=== PATIENT | male | born 1990 | race Caucasian/White ===

== ENCOUNTER 2020-11-13 22:11 | Emergency (ER) | payer BC, MEDICAID ==
[~2020-11-13] VITALS: Ht 172.7 cm; Wt 113.4 kg
[2020-11-13 22:11] VITALS: BP 109/61
[2020-11-13] MEDS ORDERED: CLIN150C16 PO (23:16)
[2020-11-13] MEDS ORDERED: SULF1TAB48 PO (23:16)
--- NOTE | 2020-11-14 00:04 | NUR ---
Patient discharged to home in stable condition. Written and verbal after care instructions given. Patient verbalizes understanding of instruction.
== END 2020-11-14 00:05 | disposition home or self-care (01) ==
LOC: ER 22:17
DX: L73.9 Follicular disorder, unspecified (principal)

== ENCOUNTER 2020-12-21 18:54 | Emergency (ER) | payer MEDICAID ==
[~2020-12-21] VITALS: Ht 167.6 cm; Wt 104.3 kg
[~2020-12-21 18:54] MED LIST: CLIN150C16 PO; SULF1TAB48 PO
[2020-12-21 19:01] VITALS: BP 139/81
[2020-12-21] MEDS ORDERED: LIDOCAINE 1%-EPI 1:100,000 20 ML VIAL ONE (19:08)
[2020-12-21] MEDS ORDERED: LIDOCAINE 1%-EPI 1:100,000 20 ML VIAL TP ONE (19:30)
[2020-12-21] MEDS ORDERED: DOXY100C41 PO (19:36)
--- NOTE | 2020-12-21 19:49 | NUR ---
Patient discharged to home in stable condition. Written and verbal after care instructions given. Patient verbalizes understanding of instruction. Pt ambulatory with a steady gait
== END 2020-12-21 19:50 | disposition home or self-care (01) ==
LOC: ER 19:01
DX: L02.413 Cutaneous abscess of right upper limb (principal); L03.113 Cellulitis of right upper limb
CPT/HCPCS: 10060; 99283; A6407; J3490

== ENCOUNTER 2020-12-23 09:53 | Emergency (ER) | payer MEDICAID ==
[~2020-12-23] VITALS: Ht 172.7 cm; Wt 111.6 kg
[~2020-12-23 09:53] MED LIST changes: +DOXY100C41 PO
[2020-12-23 10:07] VITALS: BP 114/74
== END 2020-12-23 11:14 | disposition home or self-care (01) ==
LOC: ER 09:53
DX: L02.413 Cutaneous abscess of right upper limb (principal)
CPT/HCPCS: 99281; A6403; A6407

== ENCOUNTER 2020-12-25 08:25 | Emergency (ER) | payer MEDICAID ==
[~2020-12-25] VITALS: Ht 172.7 cm; Wt 111.6 kg
--- NOTE | 2020-12-25 08:37 | NUR ---
THE PATIENT BIBS FOR RIGHT FOREARM WOUND EVAL. NO BLEEDING NOTED. WILL CONTINUE TO MONITOR THE PATIENT.
--- NOTE | 2020-12-25 09:06 | NUR ---
The patient alert and oriented x4. Patient discharged to home in stable condition. Written and verbal after care instructions given. Patient verbalizes understanding of instruction.
[2020-12-25 09:08] VITALS: BP 112/71
== END 2020-12-25 09:08 | disposition home or self-care (01) ==
LOC: ER 08:25
DX: L02.413 Cutaneous abscess of right upper limb (principal); Z79.899 Other long term (current) drug therapy

== ENCOUNTER 2021-03-02 17:10 | Emergency (ER) | payer MEDICAID ==
[~2021-03-02] VITALS: Ht 172.7 cm; Wt 104.3 kg
[~2021-03-02 17:10] MED LIST changes: +DOXY-326 PO; -DOXY100C41 PO
[2021-03-02 17:37] VITALS: BP 102/81
--- NOTE | 2021-03-02 18:09 | NUR ---
dr. garcia at bedside for eval.
[2021-03-02] MEDS ORDERED: LIDOCAINE 1%-EPI 1:100,000 20 ML VIAL ONE (18:17)
[2021-03-02] MEDS ORDERED: LIDOCAINE 1%-EPI 1:100,000 50 ML VIAL IJ ONE (18:30)
--- NOTE | 2021-03-02 18:46 | NUR ---
DR. GLOVER AT BEDSIDE FOR I&D
[2021-03-02] MEDS ORDERED: SULFAMETH/TRIMETH 800/160 MG 1 UDTAB TABLET ONE ×2 (18:52→18:54)
--- NOTE | 2021-03-02 18:55 | NUR ---
I&D DONE WITH PACKING BY DR. GLOVER AND COVERED WITH DRY DRESSING.
[2021-03-02] MEDS ORDERED: SULFAMETH/TRIMETH 800/160 MG 1 UDTAB TABLET PO ONE (19:00)
[2021-03-02] MEDS ORDERED: SULF1TAB48 PO (19:07)
--- NOTE | 2021-03-02 19:11 | NUR ---
Patient discharged to home in stable condition. Written and verbal after care instructions given. Patient verbalizes understanding of instruction.
[2021-03-06] MEDS ORDERED: CIPR-262 PO (09:02)
== END 2021-03-02 19:15 | disposition home or self-care (01) ==
LOC: ER 17:10
DX: L02.416 Cutaneous abscess of left lower limb (principal)
CPT/HCPCS: 10060; 76882; 99284; A6403 ×2; A6407 ×2; J3490 ×2

== ENCOUNTER 2021-03-05 01:07 | Inpatient (IN) | payer MEDICAID ==
[~2021-03-05] VITALS: Ht 172.7 cm; Wt 106.6 kg
[2021-03-05] MEDS ORDERED: IV NS 0.9% 1,000 ML IV ONE (01:30)
[2021-03-05] MEDS ORDERED: PIPERACILLIN /TAZOBACTAM 3.375 G in IV D5W 50 ML IV ONE (01:30)
[2021-03-05] MEDS ORDERED: VANCOMYCIN 1.5 GM in IV D5W 500 ML IV ONE (01:30)
--- NOTE | 2021-03-05 01:31 | NUR ---
URINE SPECIMEN SENT TO LAB
[2021-03-05] MEDS ORDERED: PIPERACILLIN /TAZOBACTAM 3.375 G VIAL IV ONE (01:34)
[2021-03-05] MEDS ORDERED: VANCOMYCIN 1 GM VIAL ONE (01:34)
[2021-03-05 01:35] LABS: BILIRUBIN,URINE Negative (NEGATIVE); COLOR,URINE YELLOW (YELLOW); LEUKOCYTE ESTERASE ,URINE Negative (NEGATIVE); NITRITE, URINE Negative (NEGATIVE); PH,URINE 5.5 (5.0-8.0); PROTEIN,URINE Negative (NEGATIVE); UGLUCOSE Negative (NEGATIVE)
[2021-03-05 01:39] LABS: BASOPHILS # (AUTO) 0.1 K/uL (0.0-0.2); BASOPHILS % (AUTO) 0.6 % (0.0-2.0); EOSINOPHILS % (AUTO) 1.7 % (0.0-6.0); HEMATOCRIT 43 % (39-51); HEMOGLOBIN 14.3 g/dL (13.5-17.5); LYMPHOCYTES # (AUTO) 1.6 K/uL (0.8-4.8); LYMPHOCYTES % (AUTO) 11.6 % (20.0-44.0); MEAN CORPUSCULAR HGB CONC 33 g/dl (31.0-36.0); MEAN CORPUSCULAR VOLUME 87 fL (80-96); MONOCYTES # (AUTO) 1.1 K/uL (0.1-1.30); MONOCYTES % (AUTO) 8.1 % (2.0-12.0); NEUTROPHILS # (AUTO) 10.5 K/uL (1.8-8.9); PLATELET COUNT (AUTO) 238 K/uL (150-450); RED BLOOD CELL COUNT(AUTO) 4.96 MIL/uL (4.5-6.0); WHITE BLOOD COUNT (AUTO) 13.5 K/uL (4.3-11.0)
--- NOTE | 2021-03-05 01:49 | NUR ---
RADIOLOGY AT BEDSIDE
[2021-03-05] MEDS ORDERED: VANCOMYCIN 500 MG VIAL ONE (01:51)
[2021-03-05 01:52] LABS: CALCIUM, SERUM 8.3 mg/dL (8.5-10.1); CARBON DIOXIDE 28 mmol/L (21-32); CHLORIDE 98 mmol/L (98-107); GLUCOSE 108 mg/dL (74-106); POTASSIUM 3.5 mmol/L (3.5-5.1); SODIUM SERUM 137 mmol/L (136-145); UREA NITROGEN, BLOOD 18 mg/dL (7-18)
[2021-03-05 01:58] LABS: ALANINE AMINOTRANSFERASE 20 U/L (12-78); ALKALINE PHOSPHATASE 103 U/L (46-116); ASPARTATE AMINOTRANSFERASE 16 U/L (15-37); BILIRUBIN,DIRECT 0.2 mg/dL (0.0-0.2); BILIRUBIN,TOTAL 0.6 mg/dL (0.2-1.0); TOTAL PROTEIN, SERUM 8.5 g/dL (6.4-8.2)
--- NOTE | 2021-03-05 05:42 | NUR ---
SHANNAN TENA TALKING TO NANCY PANG [facility] REGARDING PT ADMISSION.
[2021-03-05] MEDS ORDERED: ONDANSETRON HCL/PF 4 MG/2 ML VIAL IVP PRN (06:00)
[2021-03-05] MEDS ORDERED: ACETAMINOPHEN 325 MG TABLET PO PRN (06:00)
--- NOTE | 2021-03-05 06:00 | NUR ---
MS RN CLOSING NOTE PT IS IN BED AWAKE. PT IS STABLE ON RA, NO SOB NOTED. NO S/S OF RESPIRATORY DISTRESS. PT IS BED REST. IV ACCESS IS INTACT, PATENT, AND FLUSHING WELL. . ALL NEEDS HAVE BEEN MET. ALL CARE, NEEDS, MEDICATIONS, AND TREATMENT ADMINISTERED ANTICIPATED PER ORDER. SAFETY, SEIZURE, AND ASPIRATION PRECAUTIONS MAINTAINED AT ALL TIMES. BED IN LOWEST LOCKED POSITION, HOB ELEVATED, SIDE RAILS UPX2. CALL LIGHT AND TABLE WITHIN REACH. WILL ENDORSE TO ONCOMING NURSE FOR CRUZ.
--- NOTE | 2021-03-05 06:19 | NUR ---
328-2 PER RN [employer]ILY [employer]
--- NOTE | 2021-03-05 07:10 | NUR ---
RECEIVED REPORT FROM TUAN CALDERON FOR CRUZ. PT ASLEEP ON BED EASILY AROUSABLE, V/S STABLE, KEPT RESTED AND COMFORTABLE. WILL CONTINUE TO MONITOR.
--- NOTE | 2021-03-05 08:00 | NUR ---
REPORT GIVEN TO TUAN PIERRE FOR CRUZ.
--- NOTE | 2021-03-05 08:15 | NUR ---
PT. BROUGHT UP TO RM. FROM ER.A LITTLE AGITATED,CALMED DOWN.VS TAKEN.
[2021-03-05 08:30] VITALS: BP 109/54
[2021-03-05] MEDS: IV NS 0.9% 1,000 ML IV PRN (08:52)
--- NOTE | 2021-03-05 08:58 | NUR ---
WOUND CARE CONSULT: PT PRESENTS WITH LEFT BUTTOCK WOUND, STATUS POST I&D WITH PURULENCE AND INDURATION/REDNESS, PRESENT ON ADMISSION. RECOMMEND SURGICAL CONSULT. DR SOCRATES ROMAN NOTIFIED OF CONSULT REQUEST. RECOMMENDATIONS MADE FOR WOUND CARE/SKIN PROTECTION. DISCUSSED WITH NURSING STAFF. MD IN AGREEMENT WITH PLAN OF CARE.
[2021-03-05] MEDS: PIPERACILLIN /TAZOBACTAM 3.375 G in IV D5W 50 ML IV SCH ×3 (09:13→17:54)
[2021-03-05] MEDS: PANTOPRAZOLE 40 MG VIAL IV SCH (09:14)
--- NOTE | 2021-03-05 12:00 | NUR ---
INSISTED LT AC IV BE REMOVED AND IV RESTARTED IN LT. HAND.#22 ANGIO PLACED.
--- NOTE | 2021-03-05 13:00 | NUR ---
CONSENT SIGNED AND ESCORTED TO CAR IN PKY LOT.PT. EASILY AGITATED WHEN HE DOES NOT GET WHAT HE WANTS.
[2021-03-05] MEDS ORDERED: ALBU8.5H8 IH (13:42)
[2021-03-05] MEDS ORDERED: LIDOCAINE 2%-EPI 1:100,000 30 ML VIAL TP STA (14:07)
--- NOTE | 2021-03-05 14:15 | NUR ---
LUKE COUNT TEAM CLERK OF DR. ROMAN HERE AND I AND D OF LEFT BUTTOCK DONE.ANTIBIOTICS IN PROGRESS.
[2021-03-05] MEDS: VANCOMYCIN 1.5 GM in IV D5W 500 ML IV SCH (14:50)
[2021-03-05 15:45] VITALS: BP 118/69
--- NOTE | 2021-03-05 18:00 | NUR ---
SLEEPING ON AND OFF.IV INFUSING.
--- NOTE | 2021-03-05 19:00 | NUR ---
MS RN OPENING NOTE RECEIVED PT SITTING IN BED , A/OX 4, STABLE ON RA. PT ABLE TO COMMUNICATE NEEDS. NO SOB NOTED, NO C/O PAIN AT THIS TIME, NO S/S OF ANY APPARENT DISTRESS NOTED. RESPIRATIONS EVEN AND UNLABORED. SKIN IS INTACT , WARM TO TOUCH. CAPILLARY REFILL <3 SECONDS, PULSES PRESENT BILATERALLY, GOOD CIRCULATION NOTED. IV ACCESS IN PLACE LAC G#20. ASPIRATION AND SAFETY PRECAUTIONS IN PLACE AND MAINTAINED AT ALL TIMES. BED IN LOWEST LOCKED POSITION, SIDE RAILS UP X2, TABLE AND CALL LIGHT WITHIN REACH. WILL CONTINUE PLAN OF CARE.
--- NOTE | 2021-03-05 19:30 | NUR ---
PT IS ANGRY AND CURSING OUT. PT IS DIFFICULT TO CALM DOWN, ANGRY AND SHOUTING AT STAFFS AND SECURITY. PT REFUSED TO CALM DOWN AFTER TALKING TO HIM. THE CHARGE NURSE AND THE NURSING LEGAL OFFICE ADMINISTRATOR MADE AWARE OF THE SITUATION.
[2021-03-05 20:00] VITALS: BP 122/84
[2021-03-06] MEDS: PIPERACILLIN /TAZOBACTAM 3.375 G in IV D5W 50 ML IV SCH ×3 (00:43→11:00)
[2021-03-06] MEDS: IV NS 0.9% 1,000 ML IV PRN (00:45)
[2021-03-06] MEDS: VANCOMYCIN 1.5 GM in IV D5W 500 ML IV SCH ×2 (02:01→13:12)
[2021-03-06 07:03] LABS: BASOPHILS # (AUTO) 0.1 K/uL (0.0-0.2); BASOPHILS % (AUTO) 0.9 % (0.0-2.0); EOSINOPHILS % (AUTO) 3.7 % (0.0-6.0); HEMATOCRIT 39 % (39-51); HEMOGLOBIN 12.9 g/dL (13.5-17.5); LYMPHOCYTES # (AUTO) 1.4 K/uL (0.8-4.8); LYMPHOCYTES % (AUTO) 14.6 % (20.0-44.0); MEAN CORPUSCULAR HGB CONC 33 g/dl (31.0-36.0); MEAN CORPUSCULAR VOLUME 88 fL (80-96); MONOCYTES % (AUTO) 10.9 % (2.0-12.0); NEUTROPHILS # (AUTO) 6.6 K/uL (1.8-8.9); NEUTROPHILS % (AUTO) 69.9 % (43.0-81.0); PLATELET COUNT (AUTO) 210 K/uL (150-450); WHITE BLOOD COUNT (AUTO) 9.4 K/uL (4.3-11.0)
--- NOTE | 2021-03-06 07:50 | NUR ---
MS RN OPENING NOTES RECEIVED PATIENT RESTING IN BED. PATIENT IS A/O X4 BREATHING EVENLY AND NONLABORED ON ROOM AIR. NO SIGNS OF DISTRESS NOTED. PATIENT DOES NOT COMPLAIN OF PAIN AT THIS TIME. PATIENT HAS IV ACCESS ON R HAND # 22 GAUGE RUNNING NS @ 100ML/HR, PATENT AND INTACT. SAFETY MEASURES ARE IN PLACE BED LOW LOCKED CALL LIGHT WITHIN REACH. WILL CONTINUE TO MONITOR
[2021-03-06] MEDS: PANTOPRAZOLE 40 MG VIAL IV SCH (08:44)
[2021-03-06 08:55] LABS: ALBUMIN 3.1 g/dL (3.4-5.0); BILIRUBIN,TOTAL 0.4 mg/dL (0.2-1.0); CALCIUM, SERUM 8.1 mg/dL (8.5-10.1); MAGNESIUM 2.2 mg/dL (1.8-2.4); PHOSPHORUS 3.9 mg/dL (2.5-4.9)
[2021-03-06] MEDS ORDERED: CIPR-262 PO (09:02)
[2021-03-06 09:09] LABS: THYROID STIMULATING HORMONE 2.097 uIU/mL (0.358-3.74)
[2021-03-06 09:29] VITALS: BP 134/67
--- NOTE | 2021-03-06 13:11 | NUR ---
RN NOTES PATIENT IS REFUSING VANCO TROUGH LAB DRAW AND VANCOMYCIN MEDICATION. PATIENT WAS EDUCATED ON RISK AND BENEFITS STILL REFUSED. PATIENT IS NONCOMPLIANT, MD NOTIFIED. WILL CONTINUE TO MONITOR
--- NOTE | 2021-03-06 14:18 | NUR ---
RN NOTE RECEIVED ORDER FOR DISCHARGE. PATIENT IS A/O X4 AMBULATORY. PATIENT IS BREATHING EVENLY AND NONLABORED ON ROOM AIR. NO SIGNS OF DISTRESS NOTED. PATIENT WAS GIVEN PRESCRIPTION AND DISCHARGE INSTRUCTIONS. PATIENT VERBALIZED UNDERSTANDING, PATIENT WAS ALSO GIVEN COPIES. IV ACCESS WAS REMOVED CATHETER TIP INTACT. PRESSURE DRESSING APPLIED. BELONGINGS ACCOUNTED FOR AND BELONGINGS SIGNED. PATIENT LEFT IN STABLE CONDITION VIA PRIVATE CARE.
[2021-03-07] MEDS ORDERED: PANTOPRAZOLE 40 MG TABLET.DR PO SCH (07:30)
== END 2021-03-06 14:25 | disposition home health service (06) | DRG 383 ==
LOC: ER 01:12 → MED 06:28
PROVIDERS: ADMIT Internal Medicine; ATTEND Internal Medicine
PROC: 0H98XZZ Drainage of Buttock Skin, External Approach (ICD-10-PCS; principal; 2021-03-05)
DX: L02.31 Cutaneous abscess of buttock (principal); E66.9 Obesity, unspecified; F41.9 Anxiety disorder, unspecified; L03.317 Cellulitis of buttock; J45.909 Unspecified asthma, uncomplicated; Z88.8 Allergy status to other drugs, medicaments and biological substances; Z79.899 Other long term (current) drug therapy; Z68.35 Body mass index [BMI] 35.0-35.9, adult
CPT/HCPCS: 36415; 71045-TC; 80048-TC; 80053-TC; 80061-TC; 80076-TC; 83605-TC; 83735-TC; 84100-TC; 84443-TC; 84484-TC; 85025-TC; 85730-TC; 87040-TC; 87081-TC; 87086-TC; A6253; A6403; A6407; C9113; C9803; G0378; J2543; J3370; J3490; J7030; J7060